=== PATIENT | female | born 1995 | race Caucasian/White ===

== ENCOUNTER 2016-11-13 17:34 | Emergency (ER) | payer OTHER ==
[2016-11-13] MEDS ORDERED: SODIUM CHLORIDE 0.9% 1,000 ML IV STA (17:48)
[2016-11-13] MEDS ORDERED: ONDANSETRON 4 MG/2 ML VIAL IVP STA (17:48)
[2016-11-13] MEDS ORDERED: FAMOTIDINE 20 MG/2 ML VIAL IV STA (17:49)
--- NOTE | 2016-11-13 17:57 | ED ---
Nausea/Vomiting/Diarrhea HPI - General Chief complaint: Nausea/Vomiting/Diarrhea Stated complaint: vomiting Time Seen by Provider: 11/13/16 17:44 Source: patient, RN notes reviewed Mode of arrival: ambulatory Limitations: no limitations - History of Present Illness Initial comments: 21-year-old female presents emergency Department with chief complaint of nausea vomiting diarrhea. Patient states his symptoms started late side of this morning. She states that she tried to work but states that she 4 times. Patient states that she has no specific abdominal pain. Patient states she is taking care of her family member the night with some her symptoms. Patient denies any dysuria hematuria. Denies chance of . - Related Data Home Medications Medication Instructions Recorded Confirmed Norgestimate-Ethinyl Estradiol 1 tab PO DAILY@1730 11/13/16 11/13/16 [Ortho Tri-Cyclen Lo Tablet] Previous Rx's Medication Instructions Recorded Ondansetron Odt [Zofran Odt] 4 mg PO Q8HR PRN #10 tab 11/13/16 Allergies Allergy/AdvReac Type Severity Reaction Status Date / Time No Known Allergies Allergy Verified 11/13/16 18:09 Review of Systems ROS Statement: Those systems with pertinent positive or pertinent negative responses have been documented in the HPI. ROS Other: All systems not noted in ROS Statement are negative. Past Medical History Past Medical History: No Reported History History of Any Multi-Drug Resistant Organisms: None Reported Past Surgical History: Adenoidectomy, Tonsillectomy Past Anesthesia/Blood Transfusion Reactions: No Reported Reaction Past Psychological History: No Psychological Hx Reported Smoking Status: Current every day smoker Past Alcohol Use History: None Reported Past Drug Use History: None Reported - Past Family History Father Family Medical History: Diabetes Mellitus Additional Family Medical History / Comment(s): Paternal grandfather type 2 diabetes Mother Family Medical History: Hypertension Additional Family Medical History / Comment(s): Maternal grandmother heart attack General Exam Limitations: no limitations General appearance: alert, in no apparent distress Head exam: Present: atraumatic, normocephalic, normal inspection Respiratory exam: Present: normal lung sounds bilaterally. Absent: respiratory distress, wheezes, rales, rhonchi, stridor Cardiovascular Exam: Present: regular rate, normal rhythm, normal heart sounds. Absent: systolic murmur, diastolic murmur, rubs, gallop, clicks GI/Abdominal exam: Present: soft, tenderness (Mild epigastric), normal bowel sounds. Absent: distended, guarding, rebound, rigid Back exam: Absent: CVA tenderness (R), CVA tenderness (L) Neurological exam: Present: alert, oriented X3, CN II-XII intact Course Vital Signs 11/13/16 17:39 Temperature 97.5 F L Pulse Rate 96 Respiratory 20 Rate Blood Pressure 132/69 O2 Sat by Pulse 99 Oximetry Medical Decision Making - Medical Decision Making 21-year-old female presented emergency Department chief complaint nausea vomiting diarrhea. This most likely is viral as her family had similar symptoms. Patient states she does feel improved at this time. Patient was hydrated, lab work within normal limits. - Lab Data Result diagrams: 11/13/16 18:40 11/13/16 18:40 Lab Results 11/13/16 11/13/16 11/13/16 Range/Units 18:30 18:30 18:40 WBC (4.0-11.0) k/uL RBC (3.80-5.40) m/uL Hgb (11.4-16.0) gm/dL Hct (34.0-46.0) % MCV (80.0-100.0) fL MCH (25.0-35.0) pg MCHC (31.0-37.0) g/dL RDW (11.5-15.5) % Plt Count (150-450) k/uL Neutrophils % % Lymphocytes % % Monocytes % % Eosinophils % % Basophils % % Neutrophils # (1.3-7.7) k/uL Lymphocytes # (1.0-4.8) k/uL Monocytes # (0-1.0) k/uL Eosinophils # (0-0.7) k/uL Basophils # (0-0.2) k/uL Sodium 139 (137-145) mmol/L Potassium 4.3 (3.5-5.1) mmol/L Chloride 101 (98-107) mmol/L Carbon Dioxide 27 (22-30) mmol/L Anion Gap 11 mmol/L BUN 12 (7-17) mg/dL Creatinine 0.65 (0.52-1.04) mg/dL Est GFR (MDRD) Af Amer >60 (>60 ml/min/1.73 sqM) Est GFR (MDRD) Non-Af >60 (>60 ml/min/1.73 sqM) Glucose 92 (74-99) mg/dL Calcium 9.5 (8.4-10.2) mg/dL Total Bilirubin 0.5 (0.2-1.3) mg/dL AST 32 (14-36) U/L ALT 48 (9-52) U/L Alkaline Phosphatase 107 (38-126) U/L Total Protein 7.4 (6.3-8.2) g/dL Albumin 4.3 (3.5-5.0) g/dL Amylase 57 (30-110) U/L Lipase 62 (23-300) U/L Urine Color Yellow Urine Appearance Cloudy H (Clear) Urine pH 6.5 (5.0-8.0) Ur Specific [place] 1.025 (1.001-1.035) Urine Protein Trace H (Negative) Urine Glucose (UA) Negative (Negative) Urine Ketones Negative (Negative) Urine Blood Negative (Negative) Urine Nitrate Negative (Negative) Urine Bilirubin Negative (Negative) Urine Urobilinogen <2.0 (<2.0) mg/dL Ur Leukocyte Esterase Negative (Negative) Urine RBC 1 (0-5) /hpf Urine WBC 1 (0-5) /hpf Ur Squamous Epith Cells 8 H (0-4) /hpf Urine Mucus Occasional H (None) /hpf Urine HCG, Qual Not Detected (Not Detectd) 11/13/16 Range/Units 18:40 WBC 10.2 (4.0-11.0) k/uL RBC 4.47 (3.80-5.40) m/uL Hgb 13.3 (11.4-16.0) gm/dL Hct 40.9 (34.0-46.0) % MCV 91.7 (80.0-100.0) fL MCH 29.8 (25.0-35.0) pg MCHC 32.5 (31.0-37.0) g/dL RDW 13.1 (11.5-15.5) % Plt Count 274 (150-450) k/uL Neutrophils % 79 % Lymphocytes % 14 % Monocytes % 4 % Eosinophils % 1 % Basophils % 0 % Neutrophils # 8.0 H (1.3-7.7) k/uL Lymphocytes # 1.5 (1.0-4.8) k/uL Monocytes # 0.4 (0-1.0) k/uL Eosinophils # 0.1 (0-0.7) k/uL Basophils # 0.0 (0-0.2) k/uL Sodium (137-145) mmol/L Potassium (3.5-5.1) mmol/L Chloride (98-107) mmol/L Carbon Dioxide (22-30) mmol/L Anion Gap mmol/L BUN (7-17) mg/dL Creatinine (0.52-1.04) mg/dL Est GFR (MDRD) Af Amer (>60 ml/min/1.73 sqM) Est GFR (MDRD) Non-Af (>60 ml/min/1.73 sqM) Glucose (74-99) mg/dL Calcium (8.4-10.2) mg/dL Total Bilirubin (0.2-1.3) mg/dL AST (14-36) U/L ALT (9-52) U/L Alkaline Phosphatase (38-126) U/L Total Protein (6.3-8.2) g/dL Albumin (3.5-5.0) g/dL Amylase (30-110) U/L Lipase (23-300) U/L Urine Color Urine Appearance (Clear) Urine pH (5.0-8.0) Ur Specific [place] (1.001-1.035) Urine Protein (Negative) Urine Glucose (UA) (Negative) Urine Ketones (Negative) Urine Blood (Negative) Urine Nitrate (Negative) Urine Bilirubin (Negative) Urine Urobilinogen (<2.0) mg/dL Ur Leukocyte Esterase (Negative) Urine RBC (0-5) /hpf Urine WBC (0-5) /hpf Ur Squamous Epith Cells (0-4) /hpf Urine Mucus (None) /hpf Urine HCG, Qual (Not Detectd) Disposition Clinical Impression: Gastroenteritis Disposition: HOME SELF-CARE Condition: Stable Instructions: Gastroenteritis (ED) Additional Instructions: Please return to the Emergency Department if symptoms worsen or any other concerns. Prescriptions: Ondansetron Odt [Zofran Odt] 4 mg PO Q8HR PRN #10 tab PRN Reason: Nausea Time of Disposition: 19:18
[2016-11-13 18:37] LABS: Appearance,Urine Cloudy (Clear); Bilirubin,Urine Negative (Negative); Glucose,Urine (UA) Negative (Negative); Ketones,Urine Negative (Negative); Leukocyte Esterase,Urine Negative (Negative); Mucus,Urine Occasional /hpf; Nitrite,Urine Negative (Negative); PH, Urine 6.5 (5.0-8.0); Particle Count 5776; Protein,Urine Trace (Negative); RBC,Urine 1 /hpf (0-5); Specific Gravity,Urine 1.025 (1.001-1.035); Squamous Epithelial Cell,Urine 8 /hpf (0-4); UA Billing (MACRO vs. MICRO) MICRO; Urobilinogen,Urine <2.0 mg/dL (<2.0); WBC,Urine 1 /hpf (0-5)
[2016-11-13 19:05] LABS: Basophils % (A) 0 %; CH 29.7; CHCM 32.5; Eosinophils # (A) 0.1 k/uL (0-0.7); Eosinophils % (A) 1 %; HCT 40.9 % (34.0-46.0); HDW 2.13; HGB 13.3 gm/dL (11.4-16.0); Luc # (Auto) 0.15; Luc % (Auto) 2; Lymphocytes # (A) 1.5 k/uL (1.0-4.8); Lymphocytes % (A) 14 %; MCH 29.8 pg (25.0-35.0); MCHC 32.5 g/dL (31.0-37.0); MCV 91.7 fL (80.0-100.0); Mean Platelet Volume 8.4; Monocytes # (A) 0.4 k/uL (0-1.0); Monocytes % (A) 4 %; Neutrophils % (A) 79 %; RBC 4.47 m/uL (3.80-5.40); RDW 13.1 % (11.5-15.5); WBC 10.2 k/uL (4.0-11.0); WBC (Perox) 10.56
[2016-11-13 19:13] LABS: ALT 48 U/L (9-52); AST 32 U/L (14-36); Alkaline Phosphatase 107 U/L (38-126); Amylase 57 U/L (30-110); Anion Gap 11 mmol/L; Blood Urea Nitrogen 12 mg/dL (7-17); Calcium 9.5 mg/dL (8.4-10.2); Carbon Dioxide 27 mmol/L (22-30); Chloride 101 mmol/L (98-107); Glucose 92 mg/dL (74-99); Non-African American GFR(MDRD) >60 (>60 ml/min/1.73 sqM); Potassium 4.3 mmol/L (3.5-5.1); Sodium 139 mmol/L (137-145); Total Bilirubin 0.5 mg/dL (0.2-1.3); Total Protein 7.4 g/dL (6.3-8.2)
[2016-11-13 19:33] VITALS: BP 113/56; PULSE 80; RESP 16; TEMP 98.7
== END 2016-11-13 19:35 | disposition home or self-care (01) ==
LOC: EC 17:34
DX: K52.9 Noninfective gastroenteritis and colitis, unspecified (principal); F17.200 Nicotine dependence, unspecified, uncomplicated; Z79.3 Long term (current) use of hormonal contraceptives
CPT/HCPCS: 36415; 80053; 82150; 83690; 85025; 81001; 81025; 99284; 96374; 96375; 96361; J2405

== ENCOUNTER 2017-02-23 11:43 | Emergency (ER) | payer OTHER ==
[2017-02-23 11:58] VITALS: BP 122/68; PULSE 84; RESP 18; TEMP 98.2
--- NOTE | 2017-02-23 12:31 | ED ---
Female Urogenital HPI - General Chief complaint: Urogenital Stated complaint: UTI Time Seen by Provider: 02/23/17 12:10 Source: patient, RN notes reviewed Mode of arrival: ambulatory Limitations: no limitations - History of Present Illness Initial comments: 21 yo female presents to the ER with cc of dysuria x 1 day. Patient states that she woke up this morning with burning and pain when she urinated and frequency of urination. Patient admits to history of UTI in the past. Patient states this feels much like this. Patient denies any vaginal discharge or drainage. Patient denies any concern for STD. Patient states she does not believe that she is . Patient states she hasn't had any fever chills cough cold. States that is not currently having any other symptoms. Patient denies any back pain or vomiting.Patient denies any recent fever, chills, shortness of breath, chest pain, back pain, abdominal pain, nausea vomiting, numbness or tingling, hematuria, constipation or diarrhea, headaches or visual changes, or any other current symptoms. - Related Data Home Medications Medication Instructions Recorded Confirmed Norgestimate-Ethinyl Estradiol 1 tab PO DAILY@1730 11/13/16 11/13/16 [Ortho Tri-Cyclen Lo Tablet] Previous Rx's Medication Instructions Recorded Ondansetron Odt [Zofran Odt] 4 mg PO Q8HR PRN #10 tab 11/13/16 Phenazopyridine [Pyridium] 100 mg PO TID #6 tablet 02/23/17 Allergies Allergy/AdvReac Type Severity Reaction Status Date / Time No Known Allergies Allergy Verified 02/23/17 11:58 Review of Systems ROS Statement: Those systems with pertinent positive or pertinent negative responses have been documented in the HPI. ROS Other: All systems not noted in ROS Statement are negative. Past Medical History Past Medical History: No Reported History History of Any Multi-Drug Resistant Organisms: None Reported Past Surgical History: Adenoidectomy, Tonsillectomy Past Anesthesia/Blood Transfusion Reactions: No Reported Reaction Past Psychological History: No Psychological Hx Reported Smoking Status: Current every day smoker Past Alcohol Use History: None Reported Past Drug Use History: None Reported - Past Family History Father Family Medical History: Diabetes Mellitus Additional Family Medical History / Comment(s): Paternal grandfather type 2 diabetes Mother Family Medical History: Hypertension Additional Family Medical History / Comment(s): Maternal grandmother heart attack General Exam Limitations: no limitations General appearance: alert, in no apparent distress ENT exam: Present: normal exam, mucous membranes moist Neck exam: Present: normal inspection. Absent: tenderness, meningismus, lymphadenopathy Respiratory exam: Present: normal lung sounds bilaterally. Absent: respiratory distress, wheezes, rales, rhonchi, stridor Cardiovascular Exam: Present: regular rate, normal rhythm, normal heart sounds. Absent: systolic murmur, diastolic murmur, rubs, gallop, clicks GI/Abdominal exam: Present: soft, normal bowel sounds. Absent: distended, tenderness, guarding, rebound, rigid Back exam: Present: normal inspection. Absent: CVA tenderness (R), CVA tenderness (L) Neurological exam: Present: alert, oriented X3 Psychiatric exam: Present: normal affect Skin exam: Present: warm, dry, intact, normal color. Absent: rash Course Vital Signs 02/23/17 11:55 Temperature 98.2 F Pulse Rate 84 Respiratory 18 Rate Blood Pressure 122/68 O2 Sat by Pulse 100 Oximetry Medical Decision Making - Medical Decision Making 21-year-old female presents to the emergency department with a chief complaint of dysuria. At this time patient's urine is evaluated and there is not showing suspicion for infection. We will start patient on high radium. At this time we did discuss that a pelvic exam with the next appropriate step however the patient does not want to have this done. She states that she does not want this to happen. The patient at this time will be discharged home. We discussed close follow-up with her doctor for reevaluation. We did discuss return parameters and other etiologies for this. We discussed follow-up and STD testing. Patient stated that she understood all questions have been answered. She will discharge. - Lab Data Lab Results 02/23/17 02/23/17 Range/Units 12:20 12:20 Urine Color Yellow Urine Appearance Clear (Clear) Urine pH 8.0 (5.0-8.0) Ur Specific [place] 1.016 (1.001-1.035) Urine Protein Negative (Negative) Urine Glucose (UA) Negative (Negative) Urine Ketones Negative (Negative) Urine Blood Negative (Negative) Urine Nitrite Negative (Negative) Urine Bilirubin Negative (Negative) Urine Urobilinogen <2.0 (<2.0) mg/dL Ur Leukocyte Esterase Negative (Negative) Urine HCG, Qual Not Detected (Not Detectd) Disposition Clinical Impression: Dysuria Disposition: HOME SELF-CARE Condition: Stable Instructions: Dysuria (ED) Additional Instructions: Please use medication as discussed. Please follow up with family doctor if symptoms have not improved over the next two days. Please return to the emergency room if your symptoms increase or worsen or for any other concerns. Prescriptions: Phenazopyridine [Pyridium] 100 mg PO TID #6 tablet Referrals: Paul Lainez Jr, DO [Primary Care Provider] - 1-2 days Time of Disposition: 12:55
[2017-02-23 12:46] LABS: Appearance,Urine Clear (Clear); Bilirubin,Urine Negative (Negative); Glucose,Urine (UA) Negative (Negative); Ketones,Urine Negative (Negative); Leukocyte Esterase,Urine Negative (Negative); Nitrite,Urine Negative (Negative); Protein,Urine Negative (Negative); Specific Gravity,Urine 1.016 (1.001-1.035); UA Billing (MACRO vs. MICRO) CHEM; Urobilinogen,Urine <2.0 mg/dL (<2.0)
== END 2017-02-23 13:01 | disposition home or self-care (01) ==
LOC: EC 11:43
DX: R30.0 Dysuria (principal); R35.0 Frequency of micturition; F17.200 Nicotine dependence, unspecified, uncomplicated; Z79.3 Long term (current) use of hormonal contraceptives
CPT/HCPCS: 81003; 81025; 87086; 87491; 87591; 99283

== ENCOUNTER 2017-09-02 23:02 | Emergency (ER) | payer SELFPAY ==
[2017-09-02 23:12] VITALS: PULSE 84; TEMP 98.2
[2017-09-03] MEDS ORDERED: predniSONE 20 MG TAB PO STA (00:02)
[2017-09-03] MEDS ORDERED: FAMOTIDINE 20 MG TAB PO STA (00:02)
--- NOTE | 2017-09-03 00:14 | ED ---
Allergic Reaction HPI - General Chief complaint: Allergic Reaction Stated complaint: Allergic Reaction Time Seen by Provider: 09/02/17 23:53 Source: patient, RN notes reviewed, old records reviewed Mode of arrival: ambulatory Limitations: no limitations - History of Present Illness Initial Comments: Patient is a 21 year old female with hives for one day, after eating a strawberry cough drop. She reports that she took 2 benadryl prior to arrival. She denies any throat closing or worsening sore throat. Patient reports she used cough drop due to 2 days of upper respiratory infection and scratching throat. No fever. She reports some relief with benadryl. - Related Data Home Medications Medication Instructions Recorded Confirmed diphenhydrAMINE HCL [Benadryl] 25 mg PO HS PRN 09/02/17 09/02/17 Previous Rx's Medication Instructions Recorded Famotidine [Pepcid] 20 mg PO BID #10 tablet 09/03/17 predniSONE 20 mg PO BID #8 tab 09/03/17 Allergies Allergy/AdvReac Type Severity Reaction Status Date / Time No Known Allergies Allergy Verified 09/02/17 23:35 Review of Systems ROS Statement: Those systems with pertinent positive or pertinent negative responses have been documented in the HPI. ROS Other: All systems not noted in ROS Statement are negative. Constitutional: Denies: chills Eyes: Denies: eye pain ENT: Reports: as per HPI. Denies: ear pain Respiratory: Denies: cough, dyspnea Cardiovascular: Denies: chest pain, palpitations Endocrine: Denies: fatigue Gastrointestinal: Reports: as per HPI. Denies: abdominal pain Genitourinary: Denies: urgency Musculoskeletal: Denies: back pain Past Medical History Past Medical History: No Reported History History of Any Multi-Drug Resistant Organisms: None Reported Past Surgical History: Adenoidectomy, Tonsillectomy Past Anesthesia/Blood Transfusion Reactions: No Reported Reaction Past Psychological History: No Psychological Hx Reported Smoking Status: Current every day smoker Past Alcohol Use History: None Reported Past Drug Use History: None Reported - Past Family History Father Family Medical History: Diabetes Mellitus Additional Family Medical History / Comment(s): Paternal grandfather type 2 diabetes Mother Family Medical History: Hypertension Additional Family Medical History / Comment(s): Maternal grandmother heart attack General Exam - General Exam Comments Initial Comments: This is a 21 year old female, no distress. Limitations: no limitations General appearance: alert, in no apparent distress Head exam: Present: atraumatic, normocephalic, normal inspection Eye exam: Present: normal appearance, PERRL, EOMI. Absent: scleral icterus, conjunctival injection, periorbital swelling ENT exam: Present: normal exam, mucous membranes moist Neck exam: Present: normal inspection. Absent: tenderness, meningismus, lymphadenopathy Respiratory exam: Present: normal lung sounds bilaterally. Absent: respiratory distress, wheezes, rales, rhonchi, stridor Cardiovascular Exam: Present: regular rate, normal rhythm, normal heart sounds. Absent: systolic murmur, diastolic murmur, rubs, gallop, clicks GI/Abdominal exam: Present: soft, normal bowel sounds. Absent: distended, tenderness, guarding, rebound, rigid Extremities exam: Present: normal inspection, full ROM, normal capillary refill. Absent: tenderness, pedal edema, joint swelling, calf tenderness Back exam: Present: normal inspection Neurological exam: Present: alert, oriented X3, CN II-XII intact Psychiatric exam: Present: normal affect, normal mood Skin exam: Present: warm, dry, intact, normal color, urticaria (urticaria over abdomen, arms, and chest. ). Absent: rash Course Vital Signs 09/02/17 09/02/17 09/03/17 23:10 23:30 00:22 Temperature 98.2 F 98.2 F Pulse Rate 84 84 Respiratory 18 20 16 Rate Blood Pressure 133/68 142/81 O2 Sat by Pulse 98 99 Oximetry Medical Decision Making - Medical Decision Making Patient is a 21 year old female with history of upper respiratory infection and took a strawberry cough drop with acute urticaria. Patient has urticaria over chest, abdomen, and groin and upper arm. She already had 2 benadryl. Patient given pepcid and prednisone. No eidence of acute anaphylaxis. She will be discharged with steroids and pepcid. Discussed continue benadryl. Patient agrees to treatment plan and gurinder comply. Disposition Clinical Impression: Urticaria Disposition: HOME SELF-CARE Condition: Good Instructions: Urticaria (ED) Additional Instructions: Advised to continue to dose Benadryl every 6 hours. Return to emergency department if any alarming signs or symptoms occur. Prescriptions: Famotidine [Pepcid] 20 mg PO BID #10 tablet predniSONE 20 mg PO BID #8 tab Referrals: Paul Lainez Jr, [Primary Care Provider] - 1-2 days Time of Disposition: 00:12
[2017-09-03 00:23] VITALS: BP 142/81; RESP 16
== END 2017-09-03 00:20 | disposition home or self-care (01) ==
LOC: EC 23:02
DX: L50.0 Allergic urticaria (principal); F17.200 Nicotine dependence, unspecified, uncomplicated
CPT/HCPCS: 99283; J7512

== ENCOUNTER 2019-08-17 20:45 | Emergency (ER) | payer OTHER ==
[2019-08-17] MEDS ORDERED: SODIUM CHLORIDE 0.9% 1,000 ML IV ONE (20:54)
--- NOTE | 2019-08-17 20:56 | ED ---
Female Urogenital HPI - General Chief complaint: Abdominal Pain Stated complaint: -cramping Time Seen by Provider: 08/17/19 20:50 Source: patient, RN notes reviewed, old records reviewed Mode of arrival: ambulatory Limitations: no limitations - History of Present Illness Initial comments: This is a 23-year-old female in the ER for evaluation. Patient presents today for evaluation regards tovaginal bleeding and patient thinks is akua lar on 8 weeks 2 months . Mild vaginal spotting occasional cramping 2 days ago was spotting bleeding today. This is patient's first with no prior pregnancies. No medical history takes no medications menstrual cold. Patient is currently taking pills, has not yet made contact with an OB MD Complaint: vaginal bleeding (scant) -: days(s) Radiation: non-radiating Severity: mild Quality: cramping Consistency: intermittent Improves with: none Worsens with: none Last Menstrual Period: 06/20/19 Patient : Yes Associated Symptoms: vaginal bleeding - Related Data Sexually active: Yes Home Medications Medication Instructions Recorded Confirmed diphenhydrAMINE HCL [Benadryl] 25 mg PO HS PRN 09/02/17 09/02/17 Previous Rx's Medication Instructions Recorded Famotidine [Pepcid] 20 mg PO BID #10 tablet 09/03/17 predniSONE 20 mg PO BID #8 tab 09/03/17 Allergies Allergy/AdvReac Type Severity Reaction Status Date / Time No Known Allergies Allergy Verified 08/17/19 20:48 Review of Systems ROS Statement: Those systems with pertinent positive or pertinent negative responses have been documented in the HPI. ROS Other: All systems not noted in ROS Statement are negative. Past Medical History Past Medical History: No Reported History History of Any Multi-Drug Resistant Organisms: None Reported Past Surgical History: Adenoidectomy, Tonsillectomy Past Anesthesia/Blood Transfusion Reactions: No Reported Reaction Past Psychological History: No Psychological Hx Reported Smoking Status: Current every day smoker Past Alcohol Use History: None Reported Past Drug Use History: None Reported - Past Family History Father Family Medical History: Diabetes Mellitus Additional Family Medical History / Comment(s): Paternal grandfather type 2 diabetes Mother Family Medical History: Hypertension Additional Family Medical History / Comment(s): Maternal grandmother heart attack General Exam Limitations: no limitations General appearance: alert, in no apparent distress Head exam: Present: atraumatic, normocephalic, normal inspection Eye exam: Present: normal appearance, PERRL, EOMI. Absent: scleral icterus, conjunctival injection, periorbital swelling ENT exam: Present: normal exam, mucous membranes moist Neck exam: Present: normal inspection. Absent: tenderness, meningismus, lymphadenopathy Respiratory exam: Present: normal lung sounds bilaterally. Absent: respiratory distress, wheezes, rales, rhonchi, stridor Cardiovascular Exam: Present: regular rate, normal rhythm, normal heart sounds. Absent: systolic murmur, diastolic murmur, rubs, gallop, clicks GI/Abdominal exam: Present: soft, normal bowel sounds. Absent: distended, tenderness, guarding, rebound, rigid Extremities exam: Present: normal inspection, full ROM, normal capillary refill. Absent: tenderness, pedal edema, joint swelling, calf tenderness Back exam: Present: normal inspection Neurological exam: Present: alert, oriented X3, CN II-XII intact Psychiatric exam: Present: normal affect, normal mood Skin exam: Present: warm, dry, intact, normal color. Absent: rash Course Vital Signs 08/17/19 08/17/19 20:46 22:18 Temperature 99.1 F 98.4 F Pulse Rate 91 79 Respiratory 16 18 Rate Blood Pressure 158/77 112/64 O2 Sat by Pulse 98 100 Oximetry - Reevaluation(s) Reevaluation #1: 08/17/19 22:53 medical records reviewed Reevaluation #2: 08/17/19 22:53 patient is informed of positive with positive heart rate Medical Decision Making - Medical Decision Making 23 female here for evaluation and evaluation of vaginal bleeding of or . Positive viable IUP seen on her ultrasound, patient can be discharged home - Lab Data Result diagrams: 08/17/19 21:05 Lab Results 08/17/19 08/17/19 08/17/19 Range/Units 21:05 21:05 21:05 WBC 11.4 H (3.8-10.6) k/uL RBC 4.14 (3.80-5.40) m/uL Hgb 11.8 (11.4-16.0) gm/dL Hct 36.6 (34.0-46.0) % MCV 88.3 (80.0-100.0) fL MCH 28.5 (25.0-35.0) pg MCHC 32.3 (31.0-37.0) g/dL RDW 13.1 (11.5-15.5) % Plt Count 306 (150-450) k/uL Neutrophils % 77 % Lymphocytes % 18 % Monocytes % 4 % Eosinophils % 0 % Basophils % 0 % Neutrophils # 8.7 H (1.3-7.7) k/uL Lymphocytes # 2.0 (1.0-4.8) k/uL Monocytes # 0.5 (0-1.0) k/uL Eosinophils # 0.0 (0-0.7) k/uL Basophils # 0.0 (0-0.2) k/uL HCG, Quant mIU/mL Urine Color Urine Appearance (Clear) Urine pH (5.0-8.0) Ur Specific [place] (1.001-1.035) Urine Protein (Negative) Urine Glucose (UA) (Negative) Urine Ketones (Negative) Urine Blood (Negative) Urine Nitrite (Negative) Urine Bilirubin (Negative) Urine Urobilinogen (<2.0) mg/dL Ur Leukocyte Esterase (Negative) Urine HCG, Qual Detected (Not Detectd) Blood Type O Positive Blood Type Recheck No Previous Record Bld Type Recheck Status [facility] ONLY 08/17/19 08/17/19 Range/Units 21:05 21:05 WBC (3.8-10.6) k/uL RBC (3.80-5.40) m/uL Hgb (11.4-16.0) gm/dL Hct (34.0-46.0) % MCV (80.0-100.0) fL MCH (25.0-35.0) pg MCHC (31.0-37.0) g/dL RDW (11.5-15.5) % Plt Count (150-450) k/uL Neutrophils % % Lymphocytes % % Monocytes % % Eosinophils % % Basophils % % Neutrophils # (1.3-7.7) k/uL Lymphocytes # (1.0-4.8) k/uL Monocytes # (0-1.0) k/uL Eosinophils # (0-0.7) k/uL Basophils # (0-0.2) k/uL HCG, Quant 95790.0 mIU/mL Urine Color Yellow Urine Appearance Clear (Clear) Urine pH 6.5 (5.0-8.0) Ur Specific [place] 1.028 (1.001-1.035) Urine Protein Negative (Negative) Urine Glucose (UA) Negative (Negative) Urine Ketones Negative (Negative) Urine Blood Negative (Negative) Urine Nitrite Negative (Negative) Urine Bilirubin Negative (Negative) Urine Urobilinogen <2.0 (<2.0) mg/dL Ur Leukocyte Esterase Negative (Negative) Urine HCG, Qual (Not Detectd) Blood Type Blood Type Recheck Bld Type Recheck Status - Radiology Data Radiology results: report reviewed (ultrasound shows viable IUP), image reviewed Disposition Clinical Impression: Threatened , Abdominal pain affecting Disposition: HOME SELF-CARE Condition: Good Instructions (If sedation given, give patient instructions): Abdominal Pain in (ED), Threatened Miscarriage (ED) Is patient prescribed a controlled substance at d/c from ED?: No Referrals: None,Stated [Primary Care Provider] - 1-2 days
[2019-08-17 21:22] LABS: Basophils % (A) 0 %; Eosinophils % (A) 0 %; HCT 36.6 % (34.0-46.0); HGB 11.8 gm/dL (11.4-16.0); Lymphocytes % (A) 18 %; MCH 28.5 pg (25.0-35.0); MCHC 32.3 g/dL (31.0-37.0); MCV 88.3 fL (80.0-100.0); Mean Platelet Volume 8.4; Monocytes # (A) 0.5 k/uL (0-1.0); Monocytes % (A) 4 %; Neutrophils # (A) 8.7 k/uL (1.3-7.7); Neutrophils % (A) 77 %; Platelet Count 306 k/uL (150-450); RBC 4.14 m/uL (3.80-5.40); RDW 13.1 % (11.5-15.5); WBC 11.4 k/uL (3.8-10.6)
[2019-08-17 21:54] LABS: Appearance,Urine Clear (Clear); Bilirubin,Urine Negative (Negative); Blood,Urine Negative (Negative); Color,Urine Yellow; Glucose,Urine (UA) Negative (Negative); Ketones,Urine Negative (Negative); Leukocyte Esterase,Urine Negative (Negative); Nitrite,Urine Negative (Negative); PH, Urine 6.5 (5.0-8.0); Protein,Urine Negative (Negative); Specific Gravity,Urine 1.028 (1.001-1.035); Urobilinogen,Urine <2.0 mg/dL (<2.0)
--- NOTE | 2019-08-17 22:04 | US ---
EXAMINATION TYPE: Transabdominal DATE OF EXAM: 08/17/2019 9:52 PM COMPARISON: NONE CLINICAL HISTORY: pain. cramping and light spotting, EXAM PERFORMED: OBTA EXAM MEASUREMENTS: GESTATIONAL AGE / DATING Physician Established: Not yet established Dates by LMP: (8 weeks/2 days) EDC: 03/26/2020 Dates by First Scan: No previous this is first scan Dates by Current Scan for: (8 weeks/0 days) EDC: 03/28/2020 MATERNAL ANATOMY Uterus: 7.2 x 4.1 x 7.2cm Right Ovary: 2.7 x 2.1 x 2.0cm Left Ovary: not seen due to bowel gas and enlarging UT Post CDS / Adnexa: wnl Presence of free fluid: no Presence of corpus luteal cyst: not seen Presence of subchorionic bleed: no GESTATION / SURVEY CRL: 1.5 (8 weeks/0 days) MSD: wnl Yolk Sac (normal less than 6mm): 0.2cm, central portion of yolk sac appears filled in and not as defi clau. Heart Rate: 83-101, checked 3 times bpm Rhythm: lower end of normal IUP: Viable IUP Date of LMP: 06/20/2019 Beta HcG (if available): pending . IMPRESSION: The ultrasound gestational age is 8 weeks. heart rate is low. No adnexal mass.
[2019-08-17 22:20] VITALS: BP 112/64; PULSE 79; RESP 18; TEMP 98.4
== END 2019-08-17 23:08 | disposition home or self-care (01) ==
LOC: EC 20:45
DX: O20.0 Threatened abortion (principal); O26.891 Other specified pregnancy related conditions, first trimester; R10.9 Unspecified abdominal pain; O99.331 Smoking (tobacco) complicating pregnancy, first trimester; F17.200 Nicotine dependence, unspecified, uncomplicated; Z3A.08 8 weeks gestation of pregnancy
CPT/HCPCS: 36415; 76801; 81003; 81025; 84702; 85025; 86900; 86901; 96360; 99284

== ENCOUNTER → 2019-09-20 | Outpatient (CLI) | payer OTHER ==
--- NOTE | 2019-09-20 14:20 | US ---
EXAMINATION TYPE: Transabdominal DATE OF EXAM: 09/20/2019 1:23 PM COMPARISON: US 2018 CLINICAL HISTORY: O76 Previous abnormal US in ER; Low heart tones. Abnormal heart tones on previous e xam EXAM PERFORMED: Transabdominal (TA) EXAM MEASUREMENTS: GESTATIONAL AGE / DATING Physician Established: Not established yet Dates by LMP: (12 weeks/3 days) EDC: 03/31/2020 Dates by First Scan: (12 weeks/6 days) EDC: 03/28/2020 Dates by Current Scan for: (13 weeks/0 days) EDC: 03/27/2020 MATERNAL ANATOMY Uterus: 13.2 x 6.3 x 8.1cm, 1.3 x 0.9 x 2.1cm anechoic area anterior placenta, possibly sequela of szymanski bchorionic hemorrhage or early placental barroso. Right Ovary: 2.9 x 1.7 x 1.4cm Left Ovary: 2.6 x 1.2 x 1.2cm Post CDS / Adnexa: wnl Presence of free fluid: wnl Presence of corpus luteal cyst: not seen at this time GESTATION / SURVEY CRL: 6.5cm (13 weeks/0 days) Yolk Sac (normal less than 6mm): not seen Heart Rate: 155 bpm Rhythm: Normal IUP: Live IUP Date of LMP: 06/25/2019 Beta HcG (if available): Not available at time of exam Live single IUP with heart rate of 155bpm and an estimated delivery date of 03/27/2020. IMPRESSION: Single live intrauterine with a current age of 12 weeks and 3 days and an estim ated date of delivery of 03/27/2020. Heart rate is within normal limits. There is possible subchorioni c hemorrhage sequela or early placental lakes measuring 1.3 cm within the anterior placenta.
== END | disposition home or self-care (01) ==
LOC: RADUSWWP 12:37
PROVIDERS: ATTEND Obstetrics & Gynecology
DX: O76 Abnormality in fetal heart rate and rhythm complicating labor and delivery (principal); Z3A.12 12 weeks gestation of pregnancy
CPT/HCPCS: 76801

== ENCOUNTER 2020-02-12 21:10 | Outpatient (CLI) | payer OTHER ==
[2020-02-12 21:34] VITALS: BP 139/74; PULSE 99; RESP 18; TEMP 97.4
--- NOTE | 2020-02-20 13:03 | P.MSEPDOC ---
Presenting Problems - Arrival Data Date of Arrival on Unit: 02/12/20 Time of Arrival on Unit: 21:10 Mode of Transport: Ambulatory - Complaint OB-Reason for Admission/Chief Complaint: Pain Comment: 05/15 pain in upper abdomen at 1930 and then a couple times afterwards, no pain at this time or at all during visit in triage Medical History - Information : 1 Para: 0 Term: 0 : 0 Abortions: Spontaneous or Elective: 0 Number of Living Children: 0 - Gestational Age Gestational Age by JAIME (wks/days): 33 Weeks and 1 Days Review of Systems - Review of Systems Constitutional: No problems Breast: No problems ENT: No problems Cardiovascular: No problems Respiratory: No problems Gastrointestinal: No problems Genitourinary: No problems Musculoskeletal: No problems Neurological: No problems Skin: No problems Vital Signs - Temperature Temperature: 97.4 F Temperature Source: Temporal Artery Scan - Pulse Right Brachial Pulse Rate: 99 Pulse Assessment Method: Automatic Cuff - Respirations Respiratory Rate: 18 Oxygen Delivery Method: Room Air O2 Sat by Pulse Oximetry: 98 - Blood Pressure Right Arm Blood Pressure: 139/74 Blood Pressure Mean: 95 Blood Pressure Source: Automatic Cuff Medical Screen Scoring (Pre) - Cervical Exam Dilation: 0 cm = 0 Membranes: Intact - Uterine Contractions Frequency: > 5 minutes apart = 1 Duration: N/A Intensity: N/A - Maternal Vital Signs Maternal Temperature: N/A Maternal Blood Pressure: N/A Signs of Preeclampsia: N/A Maternal Respirations: N/A - Maternal Trauma Maternal Trauma: N/A - Assessment - Baby A Baseline FHR: 140 Heart Rate - NICHD Category: Category I (Normal) = 0 NST: Reactive Position: N/A Station: N/A - Total Score - Baby A Total Score - Baby A: 1 - Total Score - Baby B Total Score - Baby B: 1 - Total Score - Baby C Total Score - Baby C: 1 - Level of Risk - Baby A Level of Risk - Baby A: Low (0-5) - Level of Risk - Baby B Level of Risk - Baby B: Low (0-5) - Level of Risk - Baby C Level of Risk - Baby C: Low (0-5) Physician Notification (Pre) - Physician Notified Physician Notified Date: 02/12/20 Physician Notified Time: 21:54 New Order Received: Yes (check cervix and discharge home with instructions if closed and thick) Disposition - Disposition OB Disposition: Discharge to home Discharge Date: 02/12/20 Discharge Time: 22:15 I agree with the RN Medical Screening Exam: Yes Risk & Benefit of care provided described in d/c instruction: Yes Diagnosis: PAIN, UNSPECIFIED
== END 2020-02-12 22:15 | disposition home or self-care (01) ==
LOC: FBPOP 21:10
PROVIDERS: ATTEND Obstetrics & Gynecology Obstetrics
DX: O99.89 Other specified diseases and conditions complicating pregnancy, childbirth and the puerperium (principal); R52 Pain, unspecified; Z3A.33 33 weeks gestation of pregnancy
CPT/HCPCS: 59025; G0463; 99213

== ENCOUNTER 2020-03-19 18:08 | Inpatient (IN) | payer OTHER ==
[2020-03-19 19:29] LABS: Basophils % (A) 0 %; Eosinophils # (A) 0.1 k/uL (0-0.7); Eosinophils % (A) 1 %; HCT 33.4 % (34.0-46.0); HGB 11.1 gm/dL (11.4-16.0); Lymphocytes % (A) 11 %; MCH 30.7 pg (25.0-35.0); MCHC 33.4 g/dL (31.0-37.0); MCV 91.9 fL (80.0-100.0); Mean Platelet Volume 9.5; Monocytes # (A) 0.4 k/uL (0-1.0); Monocytes % (A) 4 %; Neutrophils # (A) 7.2 k/uL (1.3-7.7); Neutrophils % (A) 83 %; Platelet Count 249 k/uL (150-450); RBC 3.63 m/uL (3.80-5.40); RDW 15.1 % (11.5-15.5); WBC 8.7 k/uL (3.8-10.6)
[2020-03-19 19:37] LABS: Appearance,Urine Cloudy (Clear); Bacteria,Urine Few /hpf; Bilirubin,Urine Negative (Negative); Blood,Urine Negative (Negative); Color,Urine Yellow; Glucose,Urine (UA) Negative (Negative); Hyaline Casts,Urine 4 /lpf (0-2); Ketones,Urine Negative (Negative); Leukocyte Esterase,Urine Small (Negative); Mucus,Urine Rare /hpf; Nitrite,Urine Negative (Negative); Protein,Urine 1+ (Negative); RBC,Urine 1 /hpf (0-5); Squamous Epithelial Cell,Urine 16 /hpf (0-4); Urobilinogen,Urine <2.0 mg/dL (<2.0); WBC,Urine 36 /hpf (0-5)
[2020-03-19 19:37] LABS: ALT 27 U/L (4-34); AST 24 U/L (14-36); African American GFR (CKD) >90 (>60 ml/min/1.73 sqM); Blood Urea Nitrogen 8 mg/dL (7-17); LDH 459 U/L (313-618); Non-African American GFR(CKD) >90 (>60 ml/min/1.73 sqM); Uric Acid 5.7 mg/dL (3.7-7.4)
[2020-03-19 19:52] LABS: Protein/Creatinine Ratio,Urine 0.906
[2020-03-19 19:58] LABS: INR 0.9 (<1.2); Partial Thromboplastin Time 24.3 sec (22.0-30.0); Prothrombin Time 9.3 sec (9.0-12.0)
[2020-03-19] MEDS ORDERED: LACTATED RINGERS 1,000 ML IV SCH (20:15)
[2020-03-20 06:12] LABS: Basophils % (A) 0 %; Eosinophils # (A) 0.1 k/uL (0-0.7); Eosinophils % (A) 1 %; HCT 33.3 % (34.0-46.0); HGB 10.9 gm/dL (11.4-16.0); Lymphocytes # (A) 1.6 k/uL (1.0-4.8); Lymphocytes % (A) 15 %; MCH 30.6 pg (25.0-35.0); MCHC 32.9 g/dL (31.0-37.0); Mean Platelet Volume 10.2; Monocytes # (A) 0.4 k/uL (0-1.0); Monocytes % (A) 4 %; Neutrophils # (A) 8.2 k/uL (1.3-7.7); Neutrophils % (A) 79 %; Platelet Count 214 k/uL (150-450); RBC 3.58 m/uL (3.80-5.40); WBC 10.4 k/uL (3.8-10.6)
[2020-03-20 06:20] LABS: ALT 29 U/L (4-34); AST 25 U/L (14-36); African American GFR (CKD) >90 (>60 ml/min/1.73 sqM); Blood Urea Nitrogen 10 mg/dL (7-17); LDH 432 U/L (313-618); Non-African American GFR(CKD) >90 (>60 ml/min/1.73 sqM); Uric Acid 5.6 mg/dL (3.7-7.4)
[2020-03-20 06:41] LABS: INR 0.9 (<1.2); Partial Thromboplastin Time 24.3 sec (22.0-30.0); Prothrombin Time 9.3 sec (9.0-12.0)
--- NOTE | 2020-03-20 08:21 | P.HPOB ---
History of Present Illness H&P Date: 03/20/20 Chief Complaint: 38+ weeks, elevated blood pressure The patient is a 24-year-old 1 para 0 admitted at 38-3/7 weeks as established by last Mester. And confirmed by 20 week ultrasound. She is admitted complaining of contractions but found not to be in labor. However, her blood pressures were fairly significantly elevated, primarily in the systolic phase running in the range of 160/70-80. Laboratory workup to this point has been negative and the patient denies any signs or symptoms of preeclampsia. There is no significant edema. She did have 1+ protein in her urine but the specimen appeared to be contaminated. As result, she was admitted for 23 hour observation with serial blood pressures and 24 urine collection for protein and creatinine. Obstetrical history: 1 para 0 with current statistics listed above. Her has otherwise been uncomplicated. EDC of 03/31/2020 was established by last menstrual period and confirmed by 20 week ultrasound. Laboratory workup touches blood type of O+ with a negative antibody screen. Ru sury status is immune. Remainder of laboratory workup was within normal limits. Early Glucola and second trimester Glucola were both normal. Group B strep status is negative. Gynecology history: Unremarkable with no history of any infections to include STDs. Review of Systems Review of systems is confined to history of present illness. Past Medical History Past Medical History: No Reported History History of Any Multi-Drug Resistant Organisms: None Reported Past Surgical History: Adenoidectomy, Tonsillectomy Past Anesthesia/Blood Transfusion Reactions: No Reported Reaction Past Psychological History: No Psychological Hx Reported Smoking Status: Former smoker Past Alcohol Use History: None Reported Past Drug Use History: None Reported - Past Family History Father Family Medical History: Hypertension Additional Family Medical History / Comment(s): Paternal grandfather type 2 diabetes Mother Family Medical History: Hypertension Additional Family Medical History / Comment(s): Maternal grandmother heart a ttack Medications and Allergies Home Medications Medication Instructions Recorded Confirmed Type Pnv No.95/Ferrous Fum/Folic AC 1 tab PO DAILY 02/12/20 03/19/20 History [ Multivitamin Tablet] Allergies Allergy/AdvReac Type Severity Reaction Status Date / Time No Known Allergies Allergy Verified 03/19/20 18:19 Exam Vital Signs Temp Pulse Resp BP Pulse Ox 03/20/20 03:54 98.8 F 71 16 145/77 97 03/20/20 00:16 98.4 F 78 16 143/67 03/19/20 20:30 177/79 03/19/20 20:00 60 16 168/78 03/19/20 19:20 173/85 03/19/20 18:30 98.5 F 67 16 157/75 98 Intake and Output 03/19/20 03/20/20 03/20/20 22:59 06:59 14:59 Other: # Voids 2 1 Weight 121.563 kg In general, this is a well-developed, moderately obese white female in no acute distress. Her heart has a regular rhythm and rate without murmur. Her lungs are clear to auscultation bilaterally in all jackson. Her abdomen is obese, gravid, nondistended, has normal active bowel sounds, soft, nontender, and wi thout any palpable masses aside from the uterine fundus. Her extremities are without any cyanosis, clubbing, or edema and are nontender to palpation bilaterally. Digital cervical examination performed by the nursing staff demonstrates her cervix to be 1 cm dilated, fairly thick with the vertex in presentation at -3 station. Results Result Diagrams: 03/20/20 05:43 03/20/20 05:43 Abnormal Lab Results - Last 24 Hours (Table) 03/19/20 03/19/20 03/19/20 Range/Units 18:28 19:18 19:18 RBC 3.63 L (3.80-5.40) m/uL Hgb 11.1 L (11.4-16.0) gm/dL Hct 33.4 L (34.0-46.0) % Neutrophils # (1.3-7.7) k/uL Fibrinogen 533 H (200-500) mg/dL Creatinine (0.52-1.04) mg/dL Urine Appearance Cloudy H (Clear) Urine Protein 1+ H (Negative) Ur Leukocyte Esterase Small H (Negative) Urine WBC 36 H (0-5) /hpf Ur Squamous Epith Cells 16 H (0-4) /hpf Urine Bacteria Few H (None) /hpf Hyaline Casts 4 H (0-2) /lpf Urine Mucus Rare H (None) /hpf 03/19/20 03/20/20 03/20/20 Range/Units 19:18 05:43 05:43 RBC 3.58 L (3.80-5.40) m/uL Hgb 10.9 L (11.4-16.0) gm/dL Hct 33.3 L (34.0-46.0) % Neutrophils # 8.2 H (1.3-7.7) k/uL Fibrinogen 529 H (200-500) mg/dL Creatinine 0.45 L (0.52-1.04) mg/dL Urine Appearance (Clear) Urine Protein (Negative) Ur Leukocyte Esterase (Negative) Urine WBC (0-5) /hpf Ur Squamous Epith Cells (0-4) /hpf Urine Bacteria (None) /hpf Hyaline Casts (0-2) /lpf Urine Mucus (None) /hpf Assessment and Plan (1) induced hypertension Current Visit: Yes Status: Acute Code(s): O13.9 - GESTATIONAL HTN W/O SIGNIFICANT PROTEINURIA, UNSP TRIMESTER SNOMED Code(s): 42258195 (2) with 38 completed weeks gestation Current Visit: Yes Status: Acute Code(s): Z3A.38 - 38 WEEKS GESTATION OF SNOMED Code(s): 21765385 Plan: The patient has been admitted for serial blood pressure monitoring. Her blood pressures have come down overnight into the range of 140 over 70s. 24 urine collection is in progress. As noted above, laboratory workup to this point has been negative. I will start labetalol 100 mg twice daily and continue to monitor blood pressures. Further disposition will await the results of the 24 urine or any other changes in her status. status is entirely reassuring with reactive nonstress test. There is no evidence of labor. There is no current evidence of preeclampsia. Continue close maternal and surveillance.
[2020-03-20] MEDS: LABETALOL 100 MG TAB PO SCH (13:09)
[2020-03-20 21:12] LABS: Total Volume 24 Hour,Urine 1025 mls (800-1800)
[2020-03-20 21:23] LABS: Total Protein 24 Hour,Urine 1681 mg/24hr (42.0-225.0)
[2020-03-20 21:24] LABS: Creatinine 24 Hour,Urine 1896.3 mg/24hr (800.0-1800.0)
[2020-03-20] MEDS ORDERED: MISOPROSTOL 25 MCG TAB VAGINAL PRN (21:59)
[2020-03-20] MEDS ORDERED: LABETALOL SYRINGE 5 MG/ML IVP PRN ×3 (22:29)
[2020-03-20] MEDS ORDERED: hydrALAZINE HCL 20 MG/ML 1 ML VIAL IVP PRN (22:29)
[2020-03-20] MEDS ORDERED: CITRIC ACID-SODIUM CITRATE 15 ML CUP PO ONE (22:36)
[2020-03-20] MEDS ORDERED: ceFAZolin 3 GM in SODIUM CHLORIDE 0.9% 100 ML IVPB ONE (22:36)
[2020-03-20] MEDS: LABETALOL SYRINGE 5 MG/ML IVP STA ×2 (22:45→23:02)
[2020-03-20] MEDS ORDERED: DEXAMETHASONE SOD PHOSPHATE 10 MG/ML 1 ML VIAL ONE (23:00)
[2020-03-20] MEDS ORDERED: OXYTOCIN 10 UNIT/ML 1 ML VIAL ONE (23:00)
[2020-03-20] MEDS ORDERED: ONDANSETRON 4 MG/2 ML VIAL ONE (23:00)
[2020-03-20] MEDS ORDERED: diphenhydrAMINE 50 MG/ML 1 ML VIAL ONE (23:00)
[2020-03-20] MEDS ORDERED: MORPHINE SULFATE (PF) 0.3 MG/0.3 ML SYR ONE (23:00)
[2020-03-20] MEDS ORDERED: KETOROLAC 30 MG/ML 1 ML VIAL ONE (23:00)
[2020-03-20] MEDS ORDERED: ceFAZolin 1,000 MG VIAL ONE (23:00)
[2020-03-20] MEDS ORDERED: MAGNESIUM SULFATE-WATER PMX 4 GM in WATER FOR INJECTION 1 100ML.BAG IVPB ONE (23:45)
[2020-03-21] MEDS ORDERED: ZOLPIDEM 5 MG TAB PO PRN (00:07)
[2020-03-21] MEDS ORDERED: METOCLOPRAMIDE 5 MG/ML 2 ML VIAL IVP PRN (00:07)
[2020-03-21] MEDS ORDERED: IBUPROFEN 600 MG TAB PO PRN (00:07)
[2020-03-21] MEDS ORDERED: SIMETHICONE 80 MG CHEWABLE PO PRN (00:07)
[2020-03-21] MEDS ORDERED: ACETAMINOPHEN TAB 325 MG TAB PO PRN (00:07)
[2020-03-21] MEDS ORDERED: HYDROcodone/APAP 5-325MG 1 EACH TAB PO PRN (00:07)
[2020-03-21] MEDS ORDERED: diphenhydrAMINE 25 MG CAP PO PRN (00:07)
[2020-03-21] MEDS ORDERED: NALOXONE 0.4 MG/ML 1 ML VIAL IV PRN (00:07)
[2020-03-21] MEDS ORDERED: diphenhydrAMINE 50 MG/ML 1 ML VIAL IVP PRN ×2 (00:07)
[2020-03-21] MEDS ORDERED: ONDANSETRON 4 MG/2 ML VIAL IVP PRN ×2 (00:07→09:22)
[2020-03-21] MEDS ORDERED: diphenhydrAMINE 50 MG CAP PO PRN (00:07)
[2020-03-21] MEDS ORDERED: KETOROLAC 30 MG/ML 1 ML VIAL IVP PRN (00:07)
--- NOTE | 2020-03-21 00:07 | P.OP ---
Date of Procedure: 03/20/20 Preoperative Diagnosis: 38-3/7 weeks' gestation, severe preeclampsia, maternal obesity. Unfavorable cervix. Postoperative Diagnosis: Same, liveborn male , Apgars 9 and 9 at one and 5 minutes. Nuchal cord 1, left occiput transverse position, dark meconium-stained fluid. Procedure(s) Performed: Primary low transverse section, magnesium sulfate prophylaxis Anesthesia: spinal Surgeon: Cary Gilbert [employer] #1: Warner Oneal Estimated Blood Loss (ml): 400 IV fluids (ml): 1,000 Urine output (ml): 100 Pathology: other (Placenta) Condition: stable Disposition: PACU Indications for Procedure: 24 hour urine collection 1800 mg of protein, blood pressure 170s to 190s over 70s to 90s despite labetalol IV push 2. Cervix unfavorable, remote from delivery. Operative Findings: Liveborn male infant, 6 lbs. 15 oz., 3140 g, nuchal cord 1, left occiput transverse. Dark meconium-stained fluid. Description of Procedure: After thorough and careful consultation with the patient and her family, decision was made to proceed with primary low transverse section. Anesthesia team called to the bedside for blood pressure 191/96. 20 mg of labetalol IV push, blood pressure 186/87. An additional 40 mg labetalol IV push, for blood pressure 173/76. Repeat blood pressure 171/78. Patient is brought back to the delivery room, Bicitra given, Kulkarni catheter placed to direct drainage, 3 g of Ancef given. The appropriate timeout is performed to assure proper patient and procedural identification. A spinal analgesia with Duramorph is placed. Patient is now put in the dorsal supine position with left lateral uterine displacement. The abdomen is prepped and draped in the usual sterile fashion. The appropriate timeout is performed to assure proper patient and procedural identification. A low transverse skin incision is made in this is carried down through the subcutaneous tissue which is approximately 8 cm in depth. The fascia is isolated, scored, and extended bilaterally with curved Dozier scissors. Peritoneum is next identified and incised, there is no bowel or bladder involvement. The large disposable ring retractors placed for excellent visualization. A low transverse uterine incision is made in this is carried down through the myometrium. Artificial amniorrhexis reveals dark meconium- stained fluid. The infant's head is delivered in the left occiput transverse position with a nuchal cord 1 that was reduced. The oropharynx, nasopharynx, and external nares are bulb suctioned on the perineal body. Patient is officially delivered of a liveborn male at 2329 hours. Umbilical cord is doubly clamped and ligated, he is handed to waiting nurses for evaluation where scores of 9 and 9 at one and 5 minutes respectively are given. The placenta is delivered spontaneously, it is inspected and noted to be darkly meconium stained but intact with trivascular cord. It is sent to pathology for further evaluation. The uterus is then externalized and massaged. Oxytocin is given. Uterus is swept clean with a sterile sponge to avoid any retained products of conception. The edges of the uterine incision are grasped with Handley clamps. The uterus is closed in a two-step fashion, first layer running locking, second layer imbricated, both with 0 Vicryl suture. Hemostasis is excellent. Bilateral tubes and ovaries are inspected and noted to be normal. The abdomen is then suctioned with suction on guard posterior to the uterus. Uterus is gently placed back into the abdominal cavity and bilateral gutters are inspected and cleaned. Uterine incision is once again inspected, noted to be hemostatically intact and well approximated. The peritoneum was allowed to close by secondary intention. The fascia is closed in a running locking stitch of 0 Vicryl suture. Subcutaneous tissue is irrigated, inspected and noted to be clean and dry. It is reapproximated with 3-0 Vicryl in a running fashion. 4-0 undyed Monocryl is used for final subcuticular closure. Steri-Strips and Mastisol are applied to the wound. A dressing is placed. The uterus is massaged for a small amount of blood and clot. All sponge needle and enhancement counts are correct at the end of the procedure. Kulkarni is noted to be draining clear urine. Magnesium sulfate 4 g loading dose is given in the operating room. Patient exhibits the operating room with a blood pressure of 137/79, pulse 85. She is requesting circumcision for her son. Magnesium sulfate will be continued 1 g per hour for the next 24 hours.
[2020-03-21] MEDS ORDERED: MAGNESIUM SULFATE-WATER PMX 20 GM in WATER FOR INJECTION 1 500ML.BAG IV SCH (00:30)
[2020-03-21] MEDS: LABETALOL 100 MG TAB PO SCH (00:33)
[2020-03-21] MEDS: LACTATED RINGERS 1,000 ML IV SCH ×3 (02:40→18:56)
[2020-03-21] MEDS: MAGNESIUM SULFATE-WATER PMX 20 GM in WATER FOR INJECTION 1 500ML.BAG IV SCH ×2 (04:40→18:56)
[2020-03-21] MEDS ORDERED: LABETALOL 5 MG/ML VIAL MDV IVP STA (05:05)
[2020-03-21] MEDS ORDERED: LABETALOL SYRINGE 5 MG/ML IVP STA (05:05)
--- NOTE | 2020-03-21 06:48 | P.PN ---
Progress Note - Text Progress Note Date: 03/21/20 Patient without complaints. Pain controlled. Nausea being treated. Denies headache or pruritis. Denies weakness or paresthesia. VSS Back - spinal site clean and dry A/P POD#1 s/p spinal with duramorph for - doing well
--- NOTE | 2020-03-21 09:49 | P.PN ---
Subjective Progress Note Date: 03/21/20 Principal diagnosis: Postoperative day #1, on magnesium sulfate for severe preeclampsia Patient denies headache, visual changes, or right upper quadrant pain. She has been nauseated and has had multiple episodes of emesis. Objective - Vital Signs Vital signs: Vital Signs Temp 97.1 F L 03/21/20 00:08 Pulse 77 03/21/20 06:00 Resp 16 03/21/20 06:00 BP 132/69 03/21/20 06:00 Pulse Ox 96 03/21/20 02:07 Intake & Output 03/20/20 03/21/20 03/21/20 18:59 06:59 18:59 Output Total 300 Balance -300 Output: Urine 300 Other: # Voids 2 # Emeses 1 - Constitutional General appearance: Present: morbidly obese - EENT Eyes: Present: PERRLA ENT: Present: hearing grossly normal - Neck Neck: Present: normal ROM - Respiratory Respiratory: bilateral: CTA - Cardiovascular Rhythm: regular - Gastrointestinal General gastrointestinal: Present: normal bowel sounds - Genitourinary Genitourinary Comment(s): Incision clean and dry, intact, Steri-Strips applied. Fundus firm, midline, symmetric, 18 week size. Minimal lochia rubra. - Integumentary Integumentary: Present: normal - Neurologic Neurologic: Present: CNII-XII intact - Musculoskeletal Musculoskeletal: Present: generalized weakness - Psychiatric Psychiatric: Present: A&O x's 3, appropriate affect, intact judgment & insight - Labs CBC & Chem 7: 03/20/20 05:43 03/20/20 05:43 Labs: Abnormal Lab Results - Last 24 Hours (Table) 03/20/20 03/20/20 Range/Units 20:00 20:00 Ur Creatinine 24 Hour 1896.3 H (800.0-1800.0) mg/24hr U Tot Protein 24h, Calc 1681 H (42.0-225.0) mg/24hr Assessment and Plan Assessment: day #1. Plan: Continue magnesium sulfate at 1 g per hour for total of 24 hours. Slow dietary advancement. Increase to labetalol 200 mg twice daily. Time with Patient: Less than 30
[2020-03-21] MEDS: SENNOSIDES-DOCUSATE SODIUM 1 EACH TAB PO SCH (11:18)
[2020-03-21] MEDS: LABETALOL 200 MG TAB PO SCH ×2 (11:20→22:38)
[2020-03-21] MEDS ORDERED: LABETALOL 5 MG/ML VIAL MDV IVP PRN ×3 (12:49→12:52)
[2020-03-22] MEDS: SENNOSIDES-DOCUSATE SODIUM 1 EACH TAB PO SCH ×2 (00:57→08:42)
[2020-03-22 06:22] LABS: Basophils % (A) 0 %; Eosinophils % (A) 0 %; HCT 30.6 % (34.0-46.0); HGB 9.9 gm/dL (11.4-16.0); Lymphocytes # (A) 1.6 k/uL (1.0-4.8); Lymphocytes % (A) 13 %; MCH 30.3 pg (25.0-35.0); MCHC 32.2 g/dL (31.0-37.0); MCV 93.9 fL (80.0-100.0); Mean Platelet Volume 9.4; Monocytes # (A) 0.7 k/uL (0-1.0); Monocytes % (A) 5 %; Neutrophils # (A) 9.6 k/uL (1.3-7.7); Neutrophils % (A) 81 %; Platelet Count 262 k/uL (150-450); RBC 3.26 m/uL (3.80-5.40); RDW 15.5 % (11.5-15.5)
[2020-03-22] MEDS: LABETALOL 200 MG TAB PO SCH (08:42)
[2020-03-22 09:30] VITALS: RESP 18
--- NOTE | 2020-03-22 12:11 | P.DS ---
Providers Date of admission: 03/20/20 21:59 Expected date of discharge: 03/22/20 Attending physician: Andrea Molina Primary care physician: Stated None - Discharge Diagnosis(es) (1) induced hypertension Current Visit: Yes Status: Acute (2) with 38 completed weeks gestation Current Visit: Yes Status: Acute (3) Pre-eclampsia Current Visit: Yes Status: Acute (4) Status post section Current Visit: Yes Status: Acute Hospital Course: The patient is a 24-year-old 1 para 0 admitted at 38-3/7 weeks as established by good dating parameters. She is admitted complaining of contractions but not found in labor. She was, however, found to have significantly elevated blood pressures, primarily in the systolic phase. Laboratory workup done at that time was negative for any changes consistent with preeclampsia. She did have 1+ protein in her urine and continued to have elevated blood pressures in triage. She therefore was admitted for 23 hour observation and collection of 24-hour urine for protein and creatinine. She was additionally started on labetalol 100 mg twice daily. Despite this, the following day she continued to have increasingly labile blood pressures and ultimately had her 24 hour urine collection returned with approximately 1800 mg of protein. At that time she continued to have blood pressures in the range of 170-190/80-100 despite labetalol. She was given IV push labetalol and given the remoteness from delivery, was taken the operating room for primary low- transverse section. She was delivered of a viable 6 lbs. 15 oz. baby boy with Apgars of 9 at 1 minute and 9 at 5 minutes. Her postoperative course was essentially uncomplicated though she did continue to have some fairly elevated blood pressures. She was placed on magnesium sulfate following delivery and her labetalol was increased to 200 twice daily. The course of the next 24 hours, she began to significantly diurese and blood pressures came in to a more normal range with medication. She was deemed stable for discharge by the evening of postoperative day #2 having had vital signs remaining stable off of m agnesium and well controlled with labetalol. She was discharged home to follow- up in the office in several days for a repeat blood pressure check. She was given instructions to call for any increasing headache and epigastric pain or any other signs of preeclampsia. She was additionally instructed to have nothing in vagina for at least 6 weeks time to include intercourse and to abstain from any heavy lifting over the same period of time. She was instructed to call for any significantly increased bleeding, foul-smelling lochia, significantly increased fever or abdominal pain, perineal complaints, breast complaints, incisional complaints, or anything else that concerned her. She was additionally instructed to do no driving until off of all pain medications or 2 weeks' time, whichever came first. She understood her instructions and agrees to follow up as noted above. Discharge medications included labetalol 200 mg twice daily, [id number] analgesic pain medications as needed, continued vitamins as she has opted to breast-feed, and a prescription for [place] 5/325 mg, 1-2 by mouth every 6 hours when necessary pain, #20 dispensed with no refills. Maternal blood type is O+ and rubella status is immune. Discharge hemoglobin and hematocrit were 9.9 and 30.6 respectively. Procedures: #1. 24-hour urine for protein and creatinine #2. IV antihypertensives #3. Primary low-transverse section Patient Condition at Discharge: Stable Plan - Discharge Summary New Discharge Prescriptions: No Action Pnv No.95/Ferrous Fum/Folic AC [ Multivitamin Tablet] 1 tab PO DAILY Discharge Medication List Pnv No.95/Ferrous Fum/Folic AC [ Multivitamin Tablet] 1 tab PO DAILY 02/12/20 [History] Follow up Appointment(s)/Referral(s): Andrea Molina MD [STAFF PHYSICIAN] - 1 Week Discharge Disposition: HOME SELF-CARE
[2020-03-22 17:39] VITALS: BP 146/94; PULSE 94; TEMP 98.8
--- NOTE | 2020-03-23 12:53 | P.MSEPDOC ---
Presenting Problems - Arrival Data Date of Arrival on Unit: 03/20/20 Time of Arrival on Unit: 21:00 Mode of Transport: Bed - Complaint OB-Reason for Admission/Chief Complaint: Possible Onset of Labor Medical History - Information : 1 Para: 0 Term: 0 : 0 Abortions: Spontaneous or Elective: 0 Number of Living Children: 0 - Gestational Age Gestational Age by JAIME (wks/days): 38 Weeks and 4 Days Review of Systems - Review of Systems Constitutional: No problems Breast: No problems ENT: No problems Cardiovascular: No problems Respiratory: No problems Gastrointestinal: No problems Genitourinary: No problems Musculoskeletal: No problems Neurological: No problems Skin: No problems Vital Signs - Temperature Temperature: 98.8 F Temperature Source: Oral - Pulse Right Brachial Pulse Rate: 94 Pulse Assessment Method: Automatic Cuff - Respirations Respiratory Rate: 18 Oxygen Delivery Method: Room Air O2 Sat by Pulse Oximetry: 97 - Blood Pressure Right Arm Blood Pressure: 146/94 Blood Pressure Mean: 111 Blood Pressure Source: Automatic Cuff Medical Screen Scoring (Pre) - Cervical Exam Dilation: 1-3 cm = 1 Membranes: Intact - Uterine Contractions Frequency: > 5 minutes apart = 1 Duration: N/A Intensity: N/A - Maternal Vital Signs Maternal Temperature: N/A Maternal Blood Pressure: N/A Signs of Preeclampsia: N/A Maternal Respirations: N/A - Maternal Trauma Maternal Trauma: N/A - Assessment - Baby A Baseline FHR: 130 Heart Rate - NICHD Category: Category I (Normal) = 0 NST: Reactive Position: N/A Station: N/A - Total Score - Baby A Total Score - Baby A: 2 - Total Score - Baby B Total Score - Baby B: 2 - Total Score - Baby C Total Score - Baby C: 2 - Level of Risk - Baby A Level of Risk - Baby A: Low (0-5) - Level of Risk - Baby B Level of Risk - Baby B: Low (0-5) - Level of Risk - Baby C Level of Risk - Baby C: Low (0-5) Physician Notification (Pre) - Physician Notified Physician/Practitioner Notifed:: Jesse New Order Received: Yes - Notification Comment Comment: Reported I&O. Orders to d/c magnesium and lindsey catheter at this time. Medical Screen Scoring (Post) - Cervical Exam Dilation: Exam Deferred Effacement: Exam Deferred Membranes: Intact - Uterine Contractions Frequency: N/A Duration: N/A Intensity: N/A - Maternal Vital Signs Maternal Temperature: N/A Maternal Blood Pressure: N/A Signs of Preeclampsia: N/A Maternal Respirations: N/A - Pain Assessment Pain Scale Used: Numeric (1 - 10) Pain Intensity: 0 - Maternal Trauma Maternal Trauma: N/A - Assessment - Baby A Heart Rate: 125 Heart Rate - NICHD Category: Category I (Normal) = 0 NST: Reactive Position: N/A Station: N/A - Total Score Total Score - Baby A: 0 Total Score - Baby B: 0 Total Score - Baby C: 0 - Post Treatment Level of Risk Post Treatment Level of Risk - Baby A: Low (0-5) Post Treatment Level of Risk - Baby B: Low (0-5) Post Treatment Level of Risk - Baby C: Low (0-5) Physician Notification (Post) - Physician Notified Physician Notified Date: 03/19/20 Physician Notified Time: 19:50 Physician/Practitioner Notified:: Jesse Spoke With: Jesse New Order Received: Yes Disposition - Disposition OB Disposition: Observe Discharge Date: 03/22/20 Discharge Time: 18:52 I agree with the RN Medical Screening Exam: Yes Risk & Benefit of care provided described in d/c instruction: Yes Diagnosis: RELATED CONDITIONS, UNSPECIFIED, THIRD TRIMESTER
== END 2020-03-22 18:55 | disposition home or self-care (01) | DRG 788 ==
LOC: FBPOP 18:08 → 4FBP 20:17 → OBSVTOIN 03-20 21:59
PROVIDERS: ADMIT Obstetrics & Gynecology; ATTEND Obstetrics & Gynecology
PROC: 10D00Z1 Extraction of Products of Conception, Low, Open Approach (ICD-10-PCS; principal; 2020-03-20 23:15)
DX: O14.14 Severe pre-eclampsia complicating childbirth (principal); O99.214 Obesity complicating childbirth; E66.01 Morbid (severe) obesity due to excess calories; O77.0 Labor and delivery complicated by meconium in amniotic fluid; R11.2 Nausea with vomiting, unspecified; O69.81X0 Labor and delivery complicated by cord around neck, without compression, not applicable or unspecified; O99.63 Diseases of the digestive system complicating the puerperium; Z37.0 Single live birth; Z3A.38 38 weeks gestation of pregnancy; Z79.899 Other long term (current) drug therapy; Z87.891 Personal history of nicotine dependence; Z82.49 Family history of ischemic heart disease and other diseases of the circulatory system; Z83.3 Family history of diabetes mellitus
CPT/HCPCS: 59025; 81001; 81050; 82565; 82570; 83615; 84156; 84450; 84460; 84520; 84550; 85025; 85384; 85610; 85730; 88307; 99213

== ENCOUNTER 2024-08-20 07:50 | Inpatient (IN) | payer OTHER ==
[2024-08-13 13:04] VITALS: BMI 44.6
[2024-08-20] MEDS ORDERED: miSOPROStoL 200 MCG TAB PO PRN (08:23)
[2024-08-20] MEDS ORDERED: CARBOPROST TROMETHAMINE 250 MCG/ML 1 ML AMP IM PRN (08:23)
[2024-08-20] MEDS ORDERED: TRANEXAMIC 1,000 MG/100ML-NACL 1,000 MG in EMPTY BAG 1 BAG IV PRN (08:23)
[2024-08-20] MEDS ORDERED: OXYTOCIN 10 UNIT/ML 1 ML VIAL IM PRN (08:23)
[2024-08-20] MEDS ORDERED: METHYLERGONOVINE 0.2 MG/ML 1 ML AMP IM PRN (08:23)
[2024-08-20] MEDS: LACTATED RINGERS 1,000 ML IV ONE (08:27)
[2024-08-20] MEDS: CITRIC ACID-SODIUM CITRATE 15 ML CUP PO ONE (08:56)
--- NOTE | 2024-08-20 09:04 | P.HPOB ---
History of Present Illness H&P Date: 08/20/24 Chief Complaint: 39-5/7 weeks, previous section, requesting repeat, undesired ferti The patient is a 28-year-old 2 para 1-0-0-1 admitted at 39-5/7 weeks as established by 9-week ultrasound. She is admitted for repeat low-transverse section with intraoperative bilateral salpingectomy. Her has been essentially uncomplicated and group B strep status is negative. On labor and delivery, all signs are reassuring with a category 1 heart rate tracing. Obstetrical history: 2 para 1-0-0-1 with 1 term delivery at which time she additionally had -induced hypertension. Current statistics are listed in history of present illness. EDC of 08/22/2024 was established by 9-week ultrasound. Laboratory workup demonstrates a blood type of O+ with a negative antibody screen. Rubella status is immune. The remainder of the laboratory workup was within normal limits. Early Glucola and second trimester Glucola were both normal. Group B strep status is negative. Gynecologic history: Unremarkable with no history of any infections to include STDs. Review of Systems Systems is confined to history of present illness. Past Medical History Past Medical History: No Reported History Additional Past Medical History / Comment(s): Preious elevated BP r/t . 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 History of Any Multi-Drug Resistant Organisms: None Reported Past Surgical History: Adenoidectomy, Section, Tonsillectomy Past Anesthesia/Blood Transfusion Reactions: No Reported Reaction Past Psychological History: No Psychological Hx Reported Smoking Status: Vaper Past Alcohol Use History: None Reported Additional Past Alcohol Use History / Comment(s): Started smoking at age [age] years old, smoked 7 cigarettes a day, quit smoking cigarettes 2022. Currently vapes. Past Drug Use History: None Reported - Past Family History Father Family Medical History: Hypertension Additional Family Medical History / Comment(s): Paternal grandfather type 2 diabetes Mother Family Medical History: Hypertension Additional Family Medical History / Comment(s): Maternal grandmother heart attack Medications and Allergies Home Medications Medication Instructions Recorded Confirmed Type Aspirin EC [Ecotrin Low Dose] 81 mg PO HS 08/13/24 08/20/24 History Allergies Allergy/AdvReac Type Severity Reaction Status Date / Time No Known Allergies Allergy Verified 08/20/24 08:12 Exam Vital Signs Temp Pulse Resp BP Pulse Ox 08/20/24 08:16 97.0 F L 75 17 131/60 99 Intake and Output 08/19/24 08/20/24 08/20/24 22:59 06:59 14:59 Other: Weight 107.048 kg In general, this is a well-developed, mild to moderately obese white female in no acute distress. Her heart has a regular rhythm and rate without murmur. Her lungs are clear to auscultation bilaterally in all jackson. Her abdomen is gravid, has normal active bowel sounds, soft, nontender, and without any palpable masses aside from the uterine fundus. Her extremities are without any cyanosis, clubbing, or edema and are nontender to palpation bilaterally. Digital cervical examination is deferred. Assessment and Plan (1) Family planning Current Visit: Yes Status: Acute Code(s): Z30.09 - ENCOUNTER FOR OTH GENERAL CNSL AND ADVICE ON CONTRACEPTION SNOMED Code(s): 272275445 (2) Previous section Current Visit: Yes Status: Acute Code(s): Z98.891 - HISTORY OF UTERINE SCAR FROM PREVIOUS SURGERY SNOMED Code(s): 310626546 (3) Term Current Visit: Yes Status: Acute Code(s): Z34.90 - ENCNTR FOR SUPRVSN OF NORMAL , UNSP, UNSP TRIMESTER SNOMED Code(s): 25181341 Plan: Patient is admitted for repeat low-transverse section with intraoperative bilateral salpingectomy. Both procedures been thoroughly explained and she understands the permanent nature of bilateral salpingectomy. We will proceed shortly to the operating room for the above procedures and delivery.
[2024-08-20 09:07] LABS: Basophils % (A) 0 %; Eosinophils % (A) 0 %; HCT 31.7 % (34.0-46.0); HGB 10.5 gm/dL (11.4-16.0); Lymphocytes # (A) 1.2 k/uL (1.0-4.8); Lymphocytes % (A) 14 %; MCV 87.6 fL (80.0-100.0); Mean Platelet Volume 10.4; Monocytes # (A) 0.4 k/uL (0-1.0); Monocytes % (A) 5 %; Neutrophils # (A) 7.1 k/uL (1.3-7.7); Neutrophils % (A) 80 %; Platelet Count 276 k/uL (150-450); RBC 3.62 m/uL (3.80-5.40); RDW 14.7 % (11.5-15.5); WBC 8.9 k/uL (3.8-10.6)
[2024-08-20] MEDS ORDERED: KETOROLAC 15 MG/ML 1 ML VIAL ONE (09:23)
[2024-08-20] MEDS ORDERED: ePHEDrine 50 MG/ML 1 ML VIAL ONE (09:23)
[2024-08-20] MEDS ORDERED: ONDANSETRON 4 MG/2 ML VIAL ONE (09:23)
[2024-08-20] MEDS ORDERED: NALBUPHINE (ANES) 10 MG/ML - 1 ML AMP ONE (09:23)
[2024-08-20] MEDS ORDERED: MORPHINE SULFATE (PF) 0.3 MG/0.3 ML SYR ONE (09:23)
[2024-08-20] MEDS ORDERED: OXYTOCIN 30 UNITS/500 ML NS BAG IV ONE (09:23)
[2024-08-20] MEDS ORDERED: NALOXONE 0.4 MG/ML 1 ML VIAL IV PRN (10:26)
[2024-08-20] MEDS ORDERED: diphenhydrAMINE 50 MG CAP PO PRN (10:26)
[2024-08-20] MEDS ORDERED: SIMETHICONE 80 MG CHEWABLE PO PRN (10:26)
[2024-08-20] MEDS ORDERED: diphenhydrAMINE 25 MG CAP PO PRN (10:26)
[2024-08-20] MEDS ORDERED: ONDANSETRON 4 MG/2 ML VIAL IVP PRN (10:26)
[2024-08-20] MEDS ORDERED: LANOLIN CREAM 1 GM TUBE TOPICAL PRN (10:26)
[2024-08-20] MEDS ORDERED: diphenhydrAMINE 50 MG/ML 1 ML VIAL IVP PRN (10:26)
[2024-08-20] MEDS ORDERED: ZOLPIDEM 5 MG TAB PO PRN (10:26)
[2024-08-20] MEDS ORDERED: OXYTOCIN 30 UNITS/500 ML NS 30 UNIT in SALINE 1 500ML.BAG IV SCH (10:30)
--- NOTE | 2024-08-20 10:35 | P.OP ---
Date of Procedure: 08/20/24 Preoperative Diagnosis: #1. 39-5/7 weeks intrauterine , previous section requesting repeat #2. Undesired fertility Postoperative Diagnosis: Same Procedure(s) Performed: #1. Repeat low-transverse section #2. Intraoperative bilateral salpingectomy Anesthesia: spinal Surgeon: Andrea Molina Laborer Pipelines #1: Mary Gaytan Estimated Blood Loss (ml): 324 IV fluids (ml): 1,200 Urine output (ml): 200 Pathology: other (Bilateral fallopian tubes) Condition: stable Disposition: PACU Operative Findings: Intraoperatively, the patient was noted to have a moderate amount of scarring at the level of the fascia and rectus muscles with some of the omentum incorporated into the scarring as well. She additionally had some omental scarring to the mid fundal portion of the uterus which was taken down sharply using a Bovie. Clear urine was noted throughout the case. The uterus, tubes, and ovaries were entirely normal to inspection otherwise. The bilateral fallopian tubes were taken entirely and sent together as a single specimen to pathology for diagnoses. The placenta was delivered manually, intact, and grossly normal with a grossly normal three-vessel cord with slight meconium staining. Description of Procedure: And draped in usual fashion after spinal anesthesia was administered by the anesthesiologist. A Pfannenstiel incision was made through pre-existing scar and extended into the abdominal cavity with minimal difficulty. There was some difficulty with scarring at the level of the fascia and rectus muscles with the omentum being incorporated into the scarring as well. Once the abdomen was safely entered, the omentum was taken down from the uterus at its filmy this point. The bladder peritoneum was elevated, incised, and reflected distally. A 2 cm incision was made in the transverse plane of the lower uterine segment to enter the uterus at which time slightly meconium stained fluid was noted. The incision was extended both directions using the bandage scissors. The head was delivered up and through the incision where the nose and mouth were thoroughly suctioned. Nuchal cord x 1 was reduced prior to delivery of the . The remainder of the was delivered onto the field where the cord was doubly clamped, cut, and the passed resuscitative measures with weight and Apgars as noted above. cord blood was collected per protocol. The placenta was delivered manually and intact as noted above. The uterus was exteriorized and the anterior cavity uterus swept of any remaining placental or membranous fragments. The margins of the uterine incision were grasped with Handley clamps and the incision closed with a single running locking stitch of 0 chromic catgut from margin to margin. After reaffirming that the patient wished to undergo bilateral salpingectomy, the right fallopian tube was elevated at the fimbriated end with a Handley clamp and removed from its underlying tissues with a LigaSure device to the cornu at which time the tube was transected and the entire tube passed for pathological diagnoses. A similar operation was carried out on the left side without difficulty. There was no ongoing bleeding from the salpingectomy sites. The posterior cul-de-sac was suctioned using a guard followed by laparotomy sponge. The uterus was replaced within the abdominal cavity and any small points of bleeding were made hemostatic with the Bovie. Surgical powder was applied to an area where the serosa had a slight vertical rent near the right angle of the incision which m anaged bleeding well. Reexamination of the entire surgical field demonstrated excellent hemostasis. The gutters were swept of any remaining blood, fluid, or clot. Layer of muscles were made hemostatic with the Bovie and the fascia reapproximated with a single running stitch of 0 Vicryl proceeding from margin to margin. The subcutaneous tissues were made hemostatic with the Bovie then reapproximated with a running stitch of 3-0 plain catgut. The skin was reapproximated with a running subcuticular stitch of 4-0 Vicryl followed by half-inch Steri-Strips placed with Mastisol. Quantitative blood loss for the case was 324 mL. There were no complications. All sponge, instrument, and needle counts were correct. Both mother and are resting comfortably in recovery.
[2024-08-20] MEDS: METOCLOPRAMIDE 5 MG/ML 2 ML VIAL IVP PRN (12:19)
[2024-08-20] MEDS: LACTATED RINGERS 1,000 ML IV SCH (13:38)
[2024-08-20] MEDS: ACETAMINOPHEN IV (For NPO) 1,000 MG in EMPTY BAG 1 BAG IVPB ONE (14:35)
[2024-08-20] MEDS: diphenhydrAMINE 50 MG/ML 1 ML VIAL IVP PRN (15:13)
[2024-08-20] MEDS: KETOROLAC 15 MG/ML 1 ML VIAL IVP PRN (17:27)
[2024-08-20] MEDS: ACETAMINOPHEN TAB 500 MG TAB PO SCH (21:23)
[2024-08-20] MEDS: SENNOSIDES-DOCUSATE SODIUM 1 EACH TAB PO SCH (22:00)
[2024-08-21 06:25] LABS: Basophils % (A) 0 %; Eosinophils % (A) 0 %; HCT 23.7 % (34.0-46.0); Lymphocytes # (A) 1.1 k/uL (1.0-4.8); Lymphocytes % (A) 11 %; MCH 29.2 pg (25.0-35.0); MCHC 32.9 g/dL (31.0-37.0); MCV 88.8 fL (80.0-100.0); Mean Platelet Volume 8.5; Monocytes # (A) 0.5 k/uL (0-1.0); Monocytes % (A) 5 %; Neutrophils # (A) 8.3 k/uL (1.3-7.7); Neutrophils % (A) 84 %; Platelet Count 231 k/uL (150-450); RBC 2.67 m/uL (3.80-5.40); RDW 14.7 % (11.5-15.5); WBC 9.9 k/uL (3.8-10.6)
[2024-08-21 06:28] LABS: HGB 7.8 gm/dL (11.4-16.0)
--- NOTE | 2024-08-21 08:00 | P.PN ---
Progress Note - Text Progress Note Date: 08/21/24 ([id number]) Anesthesia Postop day 1 Subjective: Status Post section with Duramorph. Patient seen and examined. Doing well without complaint. VAS 0. No nausea vomiting or pruritus. Denies fever. Gross lower extremity strength intact. Without apparent anesthetic complications. Objective: Vital signs reviewed Heart: Regular Rate Lungs: Good chest excursion Abdomen: Appears nondistended Assessment: Status post section with Duramorph postop day 1 Plan: 1. Continue current care with your medical management. Anticipated end to the duration of the Duramorph around surgery time today. You may see increased pain needs around this time. 2. This note was dictated using [employer] software. Please be advised there is a potential for misspellings or errors in salon professional.
--- NOTE | 2024-08-21 08:50 | P.PNOBGPC ---
Subjective - Subjective Patient reports: Reports appetite normal, Reports voiding normally, Reports pain well controlled, Reports ambulating normally : doing well, nursing well Objective - Vital Signs Latest vital signs: Vital Signs Temp Pulse Resp BP Pulse Ox 08/21/24 08:00 98.3 F 98 16 107/65 98 08/21/24 00:00 98.1 F 75 18 108/70 98 08/20/24 20:00 98 F 78 18 117/72 98 08/20/24 16:00 97.9 F 70 18 126/84 98 08/20/24 12:24 96.2 F L 79 16 117/63 98 08/20/24 12:10 72 17 129/68 08/20/24 11:55 66 16 120/68 97 08/20/24 11:40 63 16 118/60 98 08/20/24 11:25 96.6 F L 98 17 121/76 08/20/24 11:10 68 17 128/60 97 08/20/24 10:55 66 17 140/66 97 08/20/24 10:40 72 17 125/56 98 08/20/24 10:25 96.4 F L 73 17 128/65 97 Intake and Output 08/20/24 08/21/24 08/21/24 22:59 06:59 14:59 Output Total 300 400 300 Balance -300 -400 -300 Output: Urine 300 400 300 Straight 400 300 Uretheral (Kulkarni) 300 Other: Voiding Method Indwelling Catheter - Exam Extremities: Present: normal Abdomen: Present: normal appearance, soft. Absent: distention, tenderness Incision: Present: normal, dry, intact Uterus: Present: normal, firm (The uterine fundus is tonic and appropriately tender just below the umbilicus.) - Labs Labs: Abnormal Lab Results - Last 24 Hours (Table) 08/20/24 08/21/24 Range/Units 08:16 06:04 RBC 3.62 L 2.67 L (3.80-5.40) m/uL Hgb 10.5 L 7.8 L D (11.4-16.0) gm/dL Hct 31.7 L 23.7 L (34.0-46.0) % Neutrophils # 8.3 H (1.3-7.7) k/uL Assessment and Plan (1) Family planning Current Visit: Yes Status: Acute Code(s): Z30.09 - ENCOUNTER FOR OTH GENERAL CNSL AND ADVICE ON CONTRACEPTION SNOMED Code(s): 444958345 (2) Previous section Current Visit: Yes Status: Acute Code(s): Z98.891 - HISTORY OF UTERINE SCAR FROM PREVIOUS SURGERY SNOMED Code(s): 127910239 (3) Term Current Visit: Yes Status: Acute Code(s): Z34.90 - ENCNTR FOR SUPRVSN OF NORMAL , UNSP, UNSP TRIMESTER SNOMED Code(s): 52953368 (4) Status post section Current Visit: Yes Status: Acute Code(s): Z98.891 - HISTORY OF UTERINE SCAR FROM PREVIOUS SURGERY SNOMED Code(s): 857254764 Plan: Continue routine and postoperative care. I have encouraged the patient to ambulate in the hallways routinely. I would anticipate discharge home tomorrow pending no complications.
[2024-08-21] MEDS: IBUPROFEN 800 MG TAB PO SCH (10:20)
--- NOTE | 2024-08-22 08:41 | P.DS ---
Providers Date of admission: 08/20/24 07:50 Expected date of discharge: 08/22/24 Attending physician: Andrea Molina Primary care physician: Paul Lainez - Discharge Diagnosis(es) (1) Family planning Current Visit: Yes Status: Acute (2) Previous section Current Visit: Yes Status: Acute (3) Term Current Visit: Yes Status: Acute (4) Status post section Current Visit: Yes Status: Acute Hospital Course: Patient is a 28-year-old 2 para 1-0-0-1 admitted at 39-5/7 weeks by good dating parameters. She is admitted for repeat low-transverse section with intraoperative bilateral salpingectomy. Her was uncomplicated and group B strep status is negative. On labor and delivery, all signs are reassuring with a category 1 heart rate tracing. She was taken to the operating room where she underwent the above procedures in an uncomplicated fashion and was delivered of a viable 7 pound 0 ounce baby boy with Apgars of 9 at 1 minute and 9 at 5 minutes. Her and postoperative course has been unremarkable with vital signs remaining stable and her temperature was afebrile throughout. She is deemed stable for discharge on and postoperative day #2 and was discharged home to follow-up in the office in 2 weeks for an incision check in 6 weeks routinely. Discharge instructions included calling for any significantly increased bleeding or foul-smelling lochia, significantly increased fever or abdominal pain, perineal complaints, breast complaints, incisional complaints, or anything else that concerned her. She was additionally instructed to have nothing in the vagina for at least 6 weeks time to include intercourse. She was instructed to do no heavy lifting over the same period of time. She was lastly instructed to do no driving until off of all pain medications or 2 weeks time, whichever came first. She understood her instructions and agrees to follow-up as noted above. Discharge in the medications included continued vitamins as she has opted to breast-feed. She was additionally to use [id number] analgesic pain medications. She was provided with a prescription for oxycodone 5 mg, 1-2 p.o. every 6 hours as needed pain, #20 dispensed with no refills. Maternal blood type is O+ and rubella status is immune. Discharge hemoglobin and hematocrit were 7.8 and 23.7 respectively. She therefore was instructed to use iron sulfate daily for a month to rebuild her hemoglobin. Procedures: #1. Repeat low-transverse section #2. Intraoperative bilateral salpingectomy Patient Condition at Discharge: Stable Plan - Discharge Summary Discharge Rx Participant: No New Discharge Prescriptions: No Action Aspirin EC [Ecotrin Low Dose] 81 mg PO HS Discharge Medication List Aspirin EC [Ecotrin Low Dose] 81 mg PO HS 08/13/24 [History] Follow up Appointment(s)/Referral(s): Andrea Molina MD [STAFF PHYSICIAN] - 09/03/24 3:45 pm (Post Appointment 10-03-2024 at 11:15am) Discharge Disposition: HOME SELF-CARE
[2024-08-22 09:17] VITALS: BP 136/84; PULSE 97; RESP 16; TEMP 98.4
== END 2024-08-22 11:00 | disposition home or self-care (01) | DRG 539 ==
LOC: 4FBP 07:50
PROVIDERS: ADMIT Obstetrics & Gynecology; ATTEND Obstetrics & Gynecology
PROC: 0UB70ZZ Excision of Bilateral Fallopian Tubes, Open Approach (ICD-10-PCS; 2024-08-20)
PROC: 10D00Z1 Extraction of Products of Conception, Low, Open Approach (ICD-10-PCS; principal; 2024-08-20 10:00)
DX: O34.211 Maternal care for low transverse scar from previous cesarean delivery (principal); Z30.2 Encounter for sterilization; O99.214 Obesity complicating childbirth; M19.90 Unspecified osteoarthritis, unspecified site; O26.893 Other specified pregnancy related conditions, third trimester; Z37.0 Single live birth; Z3A.39 39 weeks gestation of pregnancy; Z87.891 Personal history of nicotine dependence
CPT/HCPCS: 85025; 86850; 86900; 86901; 88302